=== PATIENT | female | born 2000 | race Caucasian/White ===

== ENCOUNTER 2018-07-06 21:38 | Emergency (ER) | payer MEDICAID ==
[~2018-07-06] VITALS: Ht 165.1 cm; Wt 85.3 kg
[2018-07-06 21:57] VITALS: Ht 165.1 cm; Wt 85.3 kg
[2018-07-06 23:20] VITALS: BP 124/62
== END 2018-07-06 23:20 | disposition home or self-care (01) ==
LOC: ED 21:38
DX: S01.511A Laceration without foreign body of lip, initial encounter (principal); X58.XXXA Exposure to other specified factors, initial encounter; Y93.89 Activity, other specified; Y92.89 Other specified places as the place of occurrence of the external cause; Y99.8 Other external cause status

== ENCOUNTER 2018-12-22 00:49 | Emergency (ER) | payer MEDICAID ==
[~2018-12-22] VITALS: Ht 165.1 cm; Wt 92.5 kg
[2018-12-22 00:55] VITALS: Ht 165.1 cm; Wt 92.5 kg
[2018-12-22 02:01] VITALS: BP 110/79
== END 2018-12-22 02:01 | disposition home or self-care (01) ==
LOC: ED 00:49
DX: T59.891A Toxic effect of other specified gases, fumes and vapors, accidental (unintentional), initial encounter (principal); R10.13 Epigastric pain; Y92.524 Gas station as the place of occurrence of the external cause
CPT/HCPCS: Q0162